=== PATIENT | female | born 1995 | race Caucasian/White ===

== ENCOUNTER 2019-12-14 22:59 | Inpatient (IN) ==
[2019-12-14] MEDS ORDERED: Lidocaine 1% 20 ML MDV INFILT PRN (23:02)
[2019-12-14] MEDS ORDERED: Metoclopramide 10 MG/2 ML VIAL IVP PRN (23:02)
[2019-12-14] MEDS ORDERED: *HR* FentaNYL (PF) 100 MCG/2 ML VIAL IVP PRN (23:02)
[2019-12-14] MEDS ORDERED: Famotidine 20 MG/2 ML VIAL IVP PRN (23:02)
[2019-12-14] MEDS ORDERED: Ondansetron 4 MG/2 ML VIAL IVP PRN ×2 (23:02→23:48)
[2019-12-14] MEDS ORDERED: Naloxone 0.4 MG/ML INJ IVP PRN ×2 (23:02→23:48)
[2019-12-14] MEDS ORDERED: Ropivacaine/PF 0.2% 20 ML VIAL EP ONE (23:48)
[2019-12-14] MEDS ORDERED: EPHEDrine 50 MG/ML VIAL IVP PRN (23:48)
[2019-12-14] MEDS ORDERED: *HR* FentaNYL (PF) 100 MCG/2 ML VIAL EP ONE (23:48)
[2019-12-15] MEDS: miSOPROStoL 25 MCG TABLET PO PRN ×2 (00:06→11:04)
[2019-12-15 00:08] LABS: Amphetamine Screen,Urine Negative ng/mL (Cutoff=1000); Barbiturate Screen,Urine Negative ng/mL (Cutoff=200); Benzodiazepines Screen,Urine Negative ng/mL (Cutoff=200); Cannabinoid Screen,Urine Negative ng/mL (Cutoff = 50); Cocaine Screen,Urine Negative ng/mL (Cutoff= 300); Opiate Screen,Urine Negative ng/mL (Cutoff=300); Phencyclidine Screen,Urine Negative ng/mL (Cutoff=25)
[2019-12-15 00:11] LABS: Basophils % 0.2 %; Eosinophils # 0.1 K/mcL (0.0-0.6); Eosinophils % 1.2 %; Hematocrit 38.8 % (35.3-44.9); Hemoglobin 12.7 g/dL (11.5-15.4); Immature Granulocytes % 0.7 % (0-4); Lymphocytes # 3.8 K/mcL (0.6-4.6); Lymphocytes % 42.9 %; Mean Corpuscular HGB Conc 32.7 g/dL (31.6-35.5); Mean Corpuscular Hemoglobin 29.9 pg (28.0-33.3); Mean Corpuscular Volume 91.3 fL (83.0-100.0); Mean Platelet Volume 10.2 fL (9.4-12.4); Monocytes # 0.9 K/mcL (0.0-1.3); Monocytes % 10.5 %; Neutrophils # 3.9 K/mcL (1.6-8.9); Platelet Count 284 K/mcL (140-400); Red Blood Count 4.25 M/mcL (3.82-4.97); Red Cell Distribution Width 13.8 % (11.5-14.5); Segmented Neutrophils % 44.5 %; White Blood Count 8.8 K/mcL (4.3-11.1)
[2019-12-15 02:24] LABS: Creatinine,Urine 90 mg/dL; Protein/Creatinine Ratio,Urine 0.12 mg/mg (0.00-0.20)
[2019-12-15 02:51] LABS: Alanine Aminotransferase 26 Units/L (7-52); Aspartate Amino Transferase 28 Units/L (13-39); BUN/Creatinine Ratio 18 (6-26); Blood Urea Nitrogen 9 mg/dL (6-20); Lactate Dehydrogenase 183 Units/L (140-271); Uric Acid 5.7 mg/dL (2.3-7.6); eGFR For African Americans > 60 (> 60); eGFR For Non-African Americans > 60 (> 60)
[2019-12-15] MEDS: Oxytocin 20 units/ LR 1000 mL 20 UNIT/1,000 ML BAG IVC SCH (05:02)
[2019-12-15] MEDS: Ringers Solution, Lactated 1,000 ML IVC SCH ×3 (09:45→22:28)
[2019-12-15] MEDS: Epidural Premix (fent/bupiv) 110 ML EP SCH ×2 (09:46→17:33)
[2019-12-16] MEDS: Epidural Premix (fent/bupiv) 110 ML EP SCH (01:36)
[2019-12-16] MEDS: Ringers Solution, Lactated 1,000 ML IVC SCH (05:37)
[2019-12-16] MEDS ORDERED: Famotidine 20 MG/2 ML VIAL IVP ONE (07:18)
[2019-12-16] MEDS ORDERED: CeFAZolin Syr 3,000MG/30 ML 3,000 MG/30 ML SYRINGE IVPB ONE (07:18)
[2019-12-16] MEDS ORDERED: Metoclopramide 10 MG/2 ML VIAL IVP ONE (07:18)
[2019-12-16] MEDS ORDERED: *HR* Phenylephrine 10 MG/ML VIAL ONE (07:32)
[2019-12-16] MEDS ORDERED: Lidocaine/EPI 1:200k 2% PF 20 ML VIAL ONE ×2 (07:33→08:28)
[2019-12-16] MEDS ORDERED: Lidocaine -MPF 2% 5 ML VIAL ONE (07:52)
[2019-12-16] MEDS ORDERED: *HR* Oxytocin 10 UNIT/ML VIAL IM ONE ×2 (08:04→08:15)
[2019-12-16] MEDS ORDERED: Ringers Solution, Lactated 1,000 ML ONE (08:04)
[2019-12-16] MEDS ORDERED: *HR* Midazolam HCl 2 MG/2 ML VIAL ONE (08:09)
[2019-12-16] MEDS ORDERED: Ketorolac 30 MG/ML VIAL ONE (08:13)
[2019-12-16] MEDS ORDERED: Acetaminophen IV 1,000 MG/100 ML INFUS..BTL ONE (08:13)
[2019-12-16] MEDS ORDERED: *HR* Morphine Sulfate/PF 10 MG/10 ML AMPUL ONE (08:21)
[2019-12-16] MEDS ORDERED: Ondansetron 4 MG/2 ML VIAL ONE (08:27)
[2019-12-16] MEDS ORDERED: Oxytocin 20 units/ LR 1000 mL 20 UNIT/1,000 ML BAG IVC ONE (08:32)
[2019-12-16] MEDS ORDERED: *HR* HYDROmorphone PF 0.5 MG/0.5 ML SYRINGE IVP PRN (08:40)
[2019-12-16] MEDS ORDERED: Metoclopramide 10 MG/2 ML VIAL IVP PRN (09:04)
[2019-12-16] MEDS ORDERED: Simethicone 80 MG TAB.CHEW PO PRN (09:04)
[2019-12-16] MEDS ORDERED: Ondansetron 4 MG/2 ML VIAL IVP PRN (09:04)
[2019-12-16] MEDS ORDERED: Sennosides 8.6 MG TABLET PO PRN (09:04)
[2019-12-16] MEDS ORDERED: Rho Immune Globulin 1,500 UNIT SYRINGE IM ONE ×2 (09:04→18:03)
[2019-12-16] MEDS ORDERED: Oxytocin 20 units/ LR 1000 mL 20 UNIT/1,000 ML BAG IVC SCH (09:15)
[2019-12-16] MEDS ORDERED: Ringers Solution, Lactated 1,000 ML IVC SCH (09:15)
[2019-12-16] MEDS: Oxytocin 20 units/ LR 1000 mL 20 UNIT/1,000 ML BAG IVC SCH (12:17)
[2019-12-16] MEDS: metroNIDAZOLE 500 MG TABLET PO SCH ×2 (15:57→20:31)
[2019-12-16] MEDS: cephALEXin 500 MG CAPSULE PO SCH ×2 (15:57→20:31)
[2019-12-16] MEDS: *HR* OxyCODONE/APAP 5/325 TABLET PO PRN ×2 (16:56→21:36)
[2019-12-16] MEDS: Ibuprofen 600 MG TABLET PO PRN (20:31)
[2019-12-17] MEDS: *HR* OxyCODONE/APAP 5/325 TABLET PO PRN ×5 (02:41→22:29)
[2019-12-17] MEDS: Ibuprofen 600 MG TABLET PO PRN ×3 (02:42→18:10)
[2019-12-17] MEDS: cephALEXin 500 MG CAPSULE PO SCH ×3 (07:55→20:12)
[2019-12-17] MEDS: metroNIDAZOLE 500 MG TABLET PO SCH ×3 (07:56→20:12)
[2019-12-17] MEDS: Prenatal Vit/FA 1 EACH TABLET PO SCH (07:56)
[2019-12-17 08:57] LABS: Basophils % 0.2 %; Eosinophils # 0.1 K/mcL (0.0-0.6); Eosinophils % 0.3 %; Hematocrit 34.4 % (35.3-44.9); Immature Granulocytes % 0.6 % (0-4); Lymphocytes # 2.6 K/mcL (0.6-4.6); Lymphocytes % 15.4 %; Mean Corpuscular HGB Conc 31.7 g/dL (31.6-35.5); Mean Corpuscular Hemoglobin 29.2 pg (28.0-33.3); Mean Corpuscular Volume 92.2 fL (83.0-100.0); Mean Platelet Volume 10.2 fL (9.4-12.4); Monocytes # 1.4 K/mcL (0.0-1.3); Neutrophils # 12.8 K/mcL (1.6-8.9); Platelet Count 270 K/mcL (140-400); Red Blood Count 3.73 M/mcL (3.82-4.97); Red Cell Distribution Width 14.3 % (11.5-14.5); Segmented Neutrophils % 75.5 %
[2019-12-17 09:07] LABS: Hemoglobin 10.9 g/dL (11.5-15.4)
[2019-12-17 20:57] VITALS: BP 105/71
[2019-12-18] MEDS: *HR* OxyCODONE/APAP 5/325 TABLET PO PRN ×2 (02:59→08:07)
[2019-12-18] MEDS: Ibuprofen 600 MG TABLET PO PRN ×2 (02:59→08:07)
[2019-12-18] MEDS: cephALEXin 500 MG CAPSULE PO SCH (08:03)
[2019-12-18] MEDS: metroNIDAZOLE 500 MG TABLET PO SCH (08:03)
[2019-12-18] MEDS: Prenatal Vit/FA 1 EACH TABLET PO SCH (08:03)
== END 2019-12-18 12:35 | disposition home or self-care (01) | DRG 788 ==
LOC: 1NENULAB 22:59 → 1NENUOBS 12-16 11:27
PROVIDERS: ADMIT Student in an Organized Health Care Education/Training Program; ATTEND Student in an Organized Health Care Education/Training Program

== ENCOUNTER 2021-01-07 09:34 | Inpatient (IN) ==
[2021-01-07] MEDS ORDERED: CeFAZolin Syr 3,000MG/30 ML 3,000 MG/30 ML SYRINGE IVPB ONE (09:35)
[2021-01-07] MEDS ORDERED: Famotidine 20 MG/2 ML VIAL IVP PRN (09:35)
[2021-01-07] MEDS ORDERED: Azithromycin 500 MG in 0.9 % Sodium Chloride 250 ML IVPB PRN (09:35)
[2021-01-07] MEDS ORDERED: Naloxone 0.4 MG/ML INJ IVP PRN (09:35)
[2021-01-07] MEDS ORDERED: Metoclopramide 10 MG/2 ML VIAL IVP PRN ×2 (09:35→15:45)
[2021-01-07] MEDS ORDERED: Ringers Solution, Lactated 1,000 ML IVC ONE (09:37)
[2021-01-07] MEDS ORDERED: Ringers Solution, Lactated 1,000 ML IVC SCH ×2 (09:45→15:45)
[2021-01-07] MEDS ORDERED: *HR* FentaNYL (PF) 100 MCG/2 ML VIAL IVP PRN (10:46)
[2021-01-07] MEDS ORDERED: *HR* OxyCODONE Immed Rel 5 MG TABLET PO PRN (10:46)
[2021-01-07 11:08] LABS: Influenza A PCR Negative (Negative); Influenza B PCR Negative (Negative); Resp. Syncytial Virus PCR Negative (Negative)
[2021-01-07 11:13] LABS: SARS-CoV-2 by PCR (In House) Negative (Negative)
[2021-01-07 11:21] LABS: Basophils % 0.2 %; Eosinophils # 0.1 K/mcL (0.0-0.6); Eosinophils % 0.9 %; Hematocrit 36.7 % (35.3-44.9); Hemoglobin 12.1 g/dL (11.5-15.4); Immature Granulocytes % 0.5 % (0-4); Lymphocytes # 1.7 K/mcL (0.6-4.6); Lymphocytes % 26.1 %; Mean Corpuscular Volume 91.1 fL (83.0-100.0); Mean Platelet Volume 10.8 fL (9.4-12.4); Monocytes # 0.3 K/mcL (0.0-1.3); Monocytes % 4.8 %; Neutrophils # 4.3 K/mcL (1.6-8.9); Platelet Count 172 K/mcL (140-400); Red Blood Count 4.03 M/mcL (3.82-4.97); Red Cell Distribution Width 13.5 % (11.5-14.5); Segmented Neutrophils % 67.5 %; White Blood Count 6.4 K/mcL (4.3-11.1)
[2021-01-07 11:33] LABS: Amphetamine Screen,Urine Negative ng/mL (Cutoff=1000); Barbiturate Screen,Urine Negative ng/mL (Cutoff=200); Benzodiazepines Screen,Urine Negative ng/mL (Cutoff=200); Cannabinoid Screen,Urine Negative ng/mL (Cutoff = 50); Cocaine Screen,Urine Negative ng/mL (Cutoff= 300); Opiate Screen,Urine Negative ng/mL (Cutoff=300); Phencyclidine Screen,Urine Negative ng/mL (Cutoff=25)
[2021-01-07] MEDS ORDERED: Oxytocin 20 units/ LR 1000 mL 20 UNIT/1,000 ML BAG IVC ONE ×2 (11:34→13:26)
[2021-01-07] MEDS ORDERED: Acetaminophen IV 1,000 MG/100 ML BAG IVPB ONE (11:45)
[2021-01-07] MEDS ORDERED: *HR* FentaNYL (PF) 100 MCG/2 ML VIAL ONE (11:45)
[2021-01-07] MEDS ORDERED: *HR* Morphine Sulfate/PF 10 MG/10 ML AMPUL ONE (11:49)
[2021-01-07] MEDS ORDERED: Ondansetron 4 MG/2 ML VIAL ONE (12:13)
[2021-01-07] MEDS ORDERED: *HR* Nalbuphine 10 MG/ML AMPUL IV ONE (14:33)
[2021-01-07] MEDS ORDERED: Measles/Mumps/Rubella Vacc 0.5 ML VIAL SQ ONE (15:45)
[2021-01-07] MEDS ORDERED: Simethicone 80 MG TAB.CHEW PO PRN (15:45)
[2021-01-07] MEDS ORDERED: Oxytocin 20 units/ LR 1000 mL 20 UNIT/1,000 ML BAG IVC SCH ×2 (15:45)
[2021-01-07] MEDS ORDERED: *HR* OxyCODONE/APAP 10/325 TABLET PO PRN (15:45)
[2021-01-07] MEDS ORDERED: Rho Immune Globulin 1,500 UNIT SYRINGE IM ONE (15:45)
[2021-01-07] MEDS ORDERED: Ondansetron 4 MG/2 ML VIAL IVP PRN (15:45)
[2021-01-07] MEDS ORDERED: *HR* OxyCODONE/APAP 5/325 TABLET PO PRN (15:45)
[2021-01-07] MEDS: Acetaminophen 325 MG TABLET PO SCH (20:08)
[2021-01-07] MEDS: *HR* Enoxaparin 80 MG/0.8 ML SYRINGE SQ SCH (20:09)
[2021-01-08] MEDS: Ibuprofen 600 MG TABLET PO SCH ×4 (00:36→17:23)
[2021-01-08] MEDS: Acetaminophen 325 MG TABLET PO SCH ×3 (04:39→18:57)
[2021-01-08 04:51] LABS: Basophils % 0.3 %; Immature Granulocytes % 0.3 % (0-4); Mean Platelet Volume 10.7 fL (9.4-12.4); Monocytes % 8.2 %; Segmented Neutrophils % 64.5 %
[2021-01-08 04:53] LABS: Eosinophils # 0.1 K/mcL (0.0-0.6); Eosinophils % 0.8 %; Hematocrit 28.6 % (35.3-44.9); Hemoglobin 9.4 g/dL (11.5-15.4); Immature Platelets 4.6 % (1.1-6.1); Lymphocytes # 1.9 K/mcL (0.6-4.6); Lymphocytes % 25.9 %; Mean Corpuscular HGB Conc 32.9 g/dL (31.6-35.5); Mean Corpuscular Hemoglobin 30.1 pg (28.0-33.3); Mean Corpuscular Volume 91.7 fL (83.0-100.0); Monocytes # 0.6 K/mcL (0.0-1.3); Platelet Count 134 K/mcL (140-400); Red Blood Count 3.12 M/mcL (3.82-4.97); Red Cell Distribution Width 13.8 % (11.5-14.5); White Blood Count 7.2 K/mcL (4.3-11.1)
[2021-01-08 04:55] LABS: Neutrophils # 4.6 K/mcL (1.6-8.9)
[2021-01-08] MEDS: Prenatal Vit/FA 1 EACH TABLET PO SCH (08:45)
[2021-01-08] MEDS: *HR* Enoxaparin 80 MG/0.8 ML SYRINGE SQ SCH ×2 (08:46→20:18)
[2021-01-08] MEDS ORDERED: NON-FORMULARY MEDICATION 1 EACH EACH (Prenatal Vits96/Iron Fum/Folic [Prenatal Tablet] 1 E PO SCH (09:00)
[2021-01-08] MEDS ORDERED: Rho Immune Globulin 1,500 UNIT SYRINGE IM ONE (12:13)
[2021-01-09] MEDS: Ibuprofen 600 MG TABLET PO SCH ×3 (00:15→08:30)
[2021-01-09] MEDS: Acetaminophen 325 MG TABLET PO SCH ×3 (00:15→08:30)
[2021-01-09 07:53] VITALS: BP 144/87; PULSE 72; TEMP 97.9; O2SAT 100
[2021-01-09] MEDS: Prenatal Vit/FA 1 EACH TABLET PO SCH (08:30)
[2021-01-09] MEDS: *HR* Enoxaparin 80 MG/0.8 ML SYRINGE SQ SCH (08:30)
== END 2021-01-09 11:30 | disposition home or self-care (01) | DRG 785 ==
LOC: 1NENULAB 09:34 → EDSTATUS 12:00 → 1NENUOBS 15:44
PROVIDERS: ADMIT Obstetrics & Gynecology; ATTEND Obstetrics & Gynecology